=== PATIENT | male | born 1975 | race Caucasian/White ===

== ENCOUNTER 2023-06-18 07:14 | Day surgery (SDC) | payer OTHER ==
[~2023-06-18] VITALS: Ht 170.2 cm; Wt 83.9 kg
[2023-06-18] MEDS ORDERED: MIDAZOLAM HCL 5 MG/5 ML VIAL ONE ×2 (09:47→10:07)
[2023-06-18] MEDS ORDERED: fentaNYL CITRATE/PF 100 MCG/2 ML AMP ONE ×2 (09:47→10:06)
[2023-06-18] MEDS ORDERED: DIPHENHYDRAMINE INJ 50 MG/ML VIAL ONE (10:05)
[2023-06-18 12:54] VITALS: O2SAT 95
[2023-06-18 14:36] VITALS: BP_SYST 129; PULSE 75; RESP 17
== END 2023-06-18 11:47 | disposition home or self-care (01) ==
LOC: SMU 07:14 → SGI 07:14
PROVIDERS: ATTEND Internal Medicine
DX: Z12.11 Encounter for screening for malignant neoplasm of colon (principal); D12.2 Benign neoplasm of ascending colon; K29.50 Unspecified chronic gastritis without bleeding; K21.9 Gastro-esophageal reflux disease without esophagitis; I10 Essential (primary) hypertension; E11.9 Type 2 diabetes mellitus without complications; E78.5 Hyperlipidemia, unspecified; K21.00 Gastro-esophageal reflux disease with esophagitis, without bleeding; K44.9 Diaphragmatic hernia without obstruction or gangrene; Z79.84 Long term (current) use of oral hypoglycemic drugs; Z79.899 Other long term (current) drug therapy
CPT/HCPCS: 45385; 43239; 87081; 82962; 36415; 88305; 88312; 88313; 99152; 99153; G0378; J1200; J2250; J3010; 45384